=== PATIENT | female | born 1960 | race Caucasian/White ===

== ENCOUNTER → 2019-05-25 | Outpatient (CLI) | payer OTHER ==
--- NOTE | 2019-05-25 16:45 | Diagnostic Imaging Report ---
INDICATION: Bilateral hand pain. COMPARISON: None. FINDINGS: Multiple radiographic views of the bilateral hands were obtained. RIGHT HAND: There is no acute fracture or dislocation. There are advanced osteoarthritic changes at the second, third, and fifth proximal interphalangeal joint spaces. There is mild lateral subluxation of the middle phalanx in respect to the proximal phalanx. No distinct erosive changes are seen. Reactive osteophyte formations are noted. No acute osseous abnormality is seen. There is no evidence of acute fracture or dislocation. No unexpected radiopaque foreign bodies are identified. LEFT HAND: Similar, although less pronounced findings are seen involving the third and fifth proximal interphalangeal joint spaces. No definite osteolytic process is identified. There is no evidence of acute fracture or dislocation. There is associated soft tissue swelling. No unexpected radiopaque foreign bodies are identified. IMPRESSION: 1. Osteoarthritic changes of the bilateral hands, primarily involving the proximal interphalangeal joint spaces, right more pronounced than left. 2. No underlying erosive changes are identified. 3. No evidence of acute fracture or dislocation. Dictated by: Dictated on workstation # [id number]
== END ==
LOC: RAD FS 16:22
PROVIDERS: ATTEND Obstetrics & Gynecology
DX: M19.042 Primary osteoarthritis, left hand (principal); M19.041 Primary osteoarthritis, right hand